=== PATIENT | male | born 1980 ===

== ENCOUNTER → 2025-11-04 | Outpatient (CLI) | payer OTHER | END | disposition home or self-care (01) | LOC: TELEHEALTH 08:14 | PROVIDERS: ATTEND Neurological Surgery | DX: M47.817 Spondylosis without myelopathy or radiculopathy, lumbosacral region (principal); M51.27 Other intervertebral disc displacement, lumbosacral region; Z09 Encounter for follow-up examination after completed treatment for conditions other than malignant neoplasm ==